=== PATIENT | male | born 1950 | race Caucasian/White ===

== ENCOUNTER 2019-06-27 06:43 | Outpatient (CLI) | payer MEDICARE, OTHER ==
[2019-06-28 11:06] LABS: SARS-CoV-2 MS2 Positive; SARS-CoV-2 N Gene Negative; SARS-CoV-2 S Gene Negative; SARS-CoV-2 orf1ab Negative
== END 2019-06-27 06:44 | disposition home or self-care (01) ==
LOC: LABBT 06:43
PROVIDERS: ATTEND Ophthalmology Retina Specialist
DX: Z01.812 Encounter for preprocedural laboratory examination (principal); Z11.59 Encounter for screening for other viral diseases
CPT/HCPCS: 87635; U0003

== ENCOUNTER 2019-07-02 05:45 | Day surgery (SDC) | payer MEDICARE ==
[2019-06-27 14:36] VITALS: BMI 27.1
[2019-07-02] MEDS ORDERED: Cyclopentolate 1% Opth Drop 2 ML BOT ONE (06:15)
[2019-07-02] MEDS ORDERED: Phenylephrine 2.5% Ophth Soln 5 ML BOT ONE (06:15)
[2019-07-02] MEDS ORDERED: Midazolam HCl 2 mg/2 ml Vial ONE (06:35)
[2019-07-02] MEDS ORDERED: Fentanyl 100 MCG/2 ML VIAL ONE (06:35)
[2019-07-02] MEDS ORDERED: PROPOFOL 20 ML ONE (06:35)
[2019-07-02] MEDS ORDERED: EPINEPHrine 0.3 MG in Ophthalmic Irrigation Solution 500 ML IRR SCH (06:45)
--- NOTE | 2019-07-02 09:51 | OP ---
DATE OF PROCEDURE: 07/02/2019 PREOPERATIVE DIAGNOSIS: Vitreous opacity of the left eye. POSTOPERATIVE DIAGNOSIS: Vitreous opacity of the left eye. PROCEDURES PERFORMED: A 25-gauge pars plana vitrectomy, left eye. ESTIMATED BLOOD LOSS: None. SPECIMENS REMOVED: None. COMPLICATIONS: None. ANESTHESIA: MAC with sub-Tenon's block. DESCRIPTION OF PROCEDURE: The patient was identified in the preoperative holding area, where the correct eye being the left eye was marked for surgery. The patient was taken to the operating room, where MAC anesthesia was induced. The left eye was prepped and draped in the usual sterile ophthalmic fashion for surgery. A wire-clip lid speculum was placed. An inferonasal conjunctival peritomy was fashioned with Teo scissors for administration of a sub-Tenon's block. The block consisted of 1:1 ratio of 4% lidocaine and 0.75% Marcaine. A total of 5 mL was administered. A standard 25-gauge pars plana vitrectomy platform was fashioned with trocars placed approximately at 3.5 mm from the limbus. The infusion was noted to be within the vitreous cavity prior to being turned on to infusion pressure of 30 mmHg. The light pipe and microvitrector were introduced in the eye under visualization of the BIOM viewing system. A significant amount of large vitreous opacities was noted. A careful core and peripheral shave vitrectomy were performed taking great care to remove the vitreous opacities to the fullest extent safely possible. Following completion of vitrectomy, 360 degree scleral depressed exam of the periphery revealed no defects. The cannulas were sequentially removed, and all sclerotomies were noted to be watertight. Subconjunctival Ancef and Kenalog were injected. The wire-clip lid speculum was removed followed by application of TobraDex ophthalmic ointment and a light patch and shield. The patient tolerated the procedure well and was taken to the outpatient recovery area in good condition. Job ID: [id number]
[2019-07-02] MEDS ORDERED: CEFAZOLIN 1 GM VIAL ONE (10:24)
[2019-07-02] MEDS ORDERED: Triamcinolone 40 MG/ML VIAL ONE (10:24)
[2019-07-02] MEDS ORDERED: Tobramycin/Dexamethasone Ophth Oint 3.5 GM TUBE ONE (10:24)
[2019-07-02] MEDS ORDERED: PROPOFOL 200 MG/20 ML VIAL ONE (10:24)
[2019-07-02] MEDS ORDERED: Lidocaine 1% PF 5 ML VIAL ONE (10:24)
== END 2019-07-02 09:03 | disposition home or self-care (01) ==
LOC: SDC 05:45
PROVIDERS: ATTEND Ophthalmology Retina Specialist
PROC: 08T53ZZ Resection of Left Vitreous, Percutaneous Approach (ICD-10-PCS; principal; 2019-07-02)
DX: H43.392 Other vitreous opacities, left eye (principal); Z79.1 Long term (current) use of non-steroidal anti-inflammatories (NSAID); Z79.82 Long term (current) use of aspirin; Z79.899 Other long term (current) drug therapy; Z88.5 Allergy status to narcotic agent
CPT/HCPCS: J0171; J0690; J2001; J2250; J2704; J3010; J3301

== ENCOUNTER 2020-07-09 14:10 | Outpatient (CLI) | payer MEDICARE ==
[2020-07-09 16:08] LABS: #Basophils 0.1 10x3/uL (0.0-0.2); #Eosinphils 0.2 10x3/uL (0.0-0.5); #Monocytes 0.8 10x3/uL (0.0-1.1); #Neutrophils 4.6 10x3/uL (1.5-8.4); %Basophils 0.9 % (0.0-2.0); %Eosinophils 2.3 % (0.0-6.0); %Lymphocytes 29.4 % (18.0-47.0); %Monocytes 9.4 % (0.0-10.0); %Neutrophils 57.6 % (40.0-75.0); Hemoglobin 15.4 g/dL (13.5-17.5); Mean Corpuscular HGB CONC 32.8 g/dL (32.0-36.0); Mean Corpuscular Hemoglobin 29.2 pg (27.0-33.0); Mean Platelet Volume 10.4 fl (7.4-10.4); Platelet Count 287 10x3/uL (150-450); RBC Distribution Width 12.9 % (11.5-14.5); Red Blood Cell (RBC) Count 5.28 10x6/uL (4.32-5.72)
[2020-07-09 16:20] LABS: INR-International Normal Ratio 0.9; Prothrombin Time 10.3 sec (9.5-12.1)
[2020-07-09 16:26] LABS: Anion Gap 13 mmol/L (10-20); BUN (Urea Nitrogen) 19 mg/dL (8.4-25.7); Calc. Creatinine Clearance 0 mL/min (70-130); Calcium 9.2 mg/dL (7.8-10.44); Carbon Dioxide 24 mmol/L (23-31); Chloride 107 mmol/L (98-107); Glucose 106 mg/dL (80-115); Potassium 4.6 mmol/L (3.5-5.1); Sodium 139 mmol/L (136-145)
[2020-07-10 13:03] LABS: SARS-CoV-2 PCR by NAA Not Detected (NotDetected)
== END 2020-07-09 14:11 | disposition home or self-care (01) ==
LOC: LABBT 14:10
PROVIDERS: ATTEND Orthopaedic Surgery
DX: Z01.818 Encounter for other preprocedural examination (principal); Z20.822 Contact with and (suspected) exposure to COVID-19; M17.12 Unilateral primary osteoarthritis, left knee
CPT/HCPCS: 80048; 85025; 85610; 87081; 93005; U0003; U0005; 93010

== ENCOUNTER 2020-07-14 08:27 | Inpatient (IN) | payer MEDICARE ==
[2020-07-10 15:12] VITALS: BMI 28.5
[2020-07-14] MEDS ORDERED: Fentanyl 100 MCG/2 ML VIAL ONE ×2 (10:10→11:48)
[2020-07-14] MEDS ORDERED: Midazolam HCl 2 mg/2 ml Vial ONE (10:10)
[2020-07-14] MEDS ORDERED: Sodium Chloride 0.9% 100 ML ONE (10:53)
[2020-07-14] MEDS ORDERED: Tranexamic Acid 1,000 MG/10 ML VIAL ONE (10:53)
[2020-07-14] MEDS ORDERED: Vancomycin 1.5 GRAM/300 ML BAG 1.5 GM in Premix Bag 1 BAG IVPB SCH ×2 (11:00→23:59)
[2020-07-14] MEDS ORDERED: Fentanyl 100 MCG/2 ML VIAL SLOW IVP PRN ×3 (11:43→14:01)
[2020-07-14] MEDS ORDERED: HYDROcodone/Acetaminophen 10/325 mg Tablet PO PRN ×3 (11:45→14:01)
[2020-07-14] MEDS ORDERED: Zolpidem Tartrate 5 MG TAB PO PRN ×2 (11:45→14:01)
[2020-07-14] MEDS ORDERED: traMADol HCl 50 MG TAB PO PRN ×3 (11:45→14:01)
[2020-07-14] MEDS ORDERED: Ondansetron PF 4 MG/2 ML Vial IVP PRN ×2 (11:45→14:01)
[2020-07-14] MEDS ORDERED: Promethazine HCl 25 MG/ML VIAL IM PRN ×3 (11:45→14:06)
[2020-07-14] MEDS ORDERED: Ropivacaine 0.2% 550 ML 550 ML NERVE BLCK SCH (11:45)
[2020-07-14] MEDS ORDERED: PROPOFOL 200 MG/20 ML VIAL ONE (11:52)
[2020-07-14] MEDS ORDERED: Ondansetron PF 4 MG/2 ML Vial ONE (11:52)
[2020-07-14] MEDS ORDERED: Dexamethasone 20 MG/5 ML VIAL ONE (11:52)
[2020-07-14] MEDS ORDERED: Bupivacaine HCl 0.5%/Epinephrine 1:200,000/PF 30 ml Vial ONE (11:52)
[2020-07-14] MEDS ORDERED: Lidocaine 1% PF 5 ML VIAL ONE (11:52)
[2020-07-14] MEDS ORDERED: Ropivacaine 2% HCl/PF (20 MG/10 ML VIAL) ONE (11:52)
[2020-07-14] MEDS ORDERED: Bupivacaine 0.25% HCL 30 ML VIAL ONE ×2 (12:38→15:31)
[2020-07-14] MEDS ORDERED: Acetaminophen 325 MG TAB PO PRN (14:01)
[2020-07-14] MEDS ORDERED: diphenhydrAMINE 25 MG CAP PO PRN (14:01)
[2020-07-14] MEDS ORDERED: Promethazine HCl 25 MG/ML VIAL SLOW IVP PRN (14:06)
[2020-07-14] MEDS ORDERED: Ondansetron HCl/PF 4 MG/2 ML Vial IVP PRN (14:06)
[2020-07-14] MEDS: Ketorolac Tromethamine 30 MG/ML VIAL IVP SCH ×3 (16:42→23:15)
[2020-07-14] MEDS: Sodium Chloride 0.9% 1,000 ML IV SCH (18:01)
[2020-07-14] MEDS: Aspirin 81 mg Enteric Coated Tablet PO SCH (20:08)
[2020-07-14] MEDS: CEFAZOLIN 2 GM in Premix Bag 1 BAG IVPB SCH (20:08)
[2020-07-15] MEDS: Sodium Chloride 0.9% 1,000 ML IV SCH ×3 (03:16→22:17)
[2020-07-15] MEDS: Ketorolac Tromethamine 30 MG/ML VIAL IVP SCH ×3 (05:07→17:03)
[2020-07-15] MEDS: CEFAZOLIN 2 GM in Premix Bag 1 BAG IVPB SCH (05:07)
[2020-07-15 05:43] LABS: Mean Corpuscular Volume 91.2 fL (78.0-98.0); Mean Platelet Volume 7.9 fL (7.4-10.4); Platelet Count 246 thou/uL (130-400); RBC Distribution Width 12.2 % (11.5-14.5); Red Blood Cell (RBC) Count 4.18 mill/uL (4.70-6.10); White Blood Cell (WBC) Count 15.6 thou/uL (4.8-10.8)
[2020-07-15] MEDS: Ferrous Gluconate 324 MG TAB PO SCH ×2 (08:49→20:19)
[2020-07-15] MEDS: Aspirin 81 mg Enteric Coated Tablet PO SCH ×2 (08:49→20:19)
[2020-07-15] MEDS: Senokot S 8.6-50 MG TAB PO SCH ×2 (08:49→20:19)
[2020-07-15] MEDS: Multivitamin W/ Minerals 1 TAB PO SCH (08:49)
[2020-07-15] MEDS: HYDROcodone/Acetaminophen 10/325 mg Tablet PO PRN ×2 (11:35→20:26)
[2020-07-16] MEDS: Ketorolac Tromethamine 30 MG/ML VIAL IVP SCH ×2 (05:59)
[2020-07-16 06:01] LABS: Hemoglobin 12.5 g/dL (14.0-18.0); Mean Corpuscular HGB CONC 33.8 g/dL (32.0-36.0); Mean Corpuscular Hemoglobin 31.1 pg (27.0-31.0); Mean Corpuscular Volume 91.9 fL (78.0-98.0); Mean Platelet Volume 7.7 fL (7.4-10.4); Platelet Count 215 thou/uL (130-400); RBC Distribution Width 12.2 % (11.5-14.5); Red Blood Cell (RBC) Count 4.01 mill/uL (4.70-6.10); White Blood Cell (WBC) Count 12.5 thou/uL (4.8-10.8)
[2020-07-16] MEDS: Ferrous Gluconate 324 MG TAB PO SCH (09:14)
[2020-07-16] MEDS: Aspirin 81 mg Enteric Coated Tablet PO SCH (09:14)
[2020-07-16] MEDS: Multivitamin W/ Minerals 1 TAB PO SCH (09:14)
[2020-07-16] MEDS: Senokot S 8.6-50 MG TAB PO SCH (09:14)
[2020-07-16] MEDS: HYDROcodone/Acetaminophen 10/325 mg Tablet PO PRN ×2 (09:18→13:20)
[2020-07-16 12:02] VITALS: BP 122/73; TEMP 98.2
[2020-07-16] MEDS ORDERED: Ketorolac Tromethamine 30 MG/ML VIAL IVP PRN (16:00)
== END 2020-07-16 15:50 | disposition home or self-care (01) | DRG 470 ==
LOC: SDC 08:27 → SJJU 14:01
PROVIDERS: ADMIT Orthopaedic Surgery; ATTEND Orthopaedic Surgery
PROC: 0SRD0J9 Replacement of Left Knee Joint with Synthetic Substitute, Cemented, Open Approach (ICD-10-PCS; principal; 2020-07-14)
DX: M17.0 Bilateral primary osteoarthritis of knee (principal); M21.162 Varus deformity, not elsewhere classified, left knee; M25.762 Osteophyte, left knee; H40.9 Unspecified glaucoma; Z88.5 Allergy status to narcotic agent; Z98.890 Other specified postprocedural states; Z85.820 Personal history of malignant melanoma of skin
CPT/HCPCS: 36415; 85027; A4306; C1713; C1776; J0690; J1100; J1885; J2250; J2405; J2704; J2795; J3010; J3370; J3490; S0020

== ENCOUNTER 2020-07-18 21:24 | Emergency (ER) | payer MEDICARE ==
[2020-07-18] MEDS ORDERED: Gabapentin 300 MG CAP PO SCH (22:15)
[2020-07-18 22:31] LABS: #Basophils 0.1 thou/uL (0.0-0.2); #Eosinphils 0.3 thou/uL (0.0-0.7); #Lymphocytes 1.8 thou/uL (1.20-3.40); #Monocytes 1.3 thou/uL (0.11-0.59); #Neutrophils 6.9 thou/uL (1.40-6.50); %Basophils 0.9 % (0.0-1.0); %Eosinophils 3.3 % (0.0-10.0); %Lymphocytes 17.1 % (21.0-51.0); %Monocytes 12.1 % (0.0-10.0); %Neutrophils 66.5 % (42.0-75.0); Hemoglobin 11.5 g/dL (14.0-18.0); Mean Corpuscular HGB CONC 34.1 g/dL (32.0-36.0); Mean Corpuscular Hemoglobin 30.7 pg (27.0-31.0); Mean Corpuscular Volume 90.2 fL (78.0-98.0); Mean Platelet Volume 7.4 fL (7.4-10.4); Platelet Count 288 thou/uL (130-400); Red Blood Cell (RBC) Count 3.74 mill/uL (4.70-6.10); White Blood Cell (WBC) Count 10.4 thou/uL (4.8-10.8)
[2020-07-18 22:53] LABS: ALT (SGPT) 34 U/L (8-55); AST (SGOT) 30 U/L (5-34); Albumin 3.6 g/dL (3.4-4.8); Alkaline Phosphatase 104 U/L (40-110); Anion Gap 14 mmol/L (10-20); BUN (Urea Nitrogen) 21 mg/dL (8.4-25.7); Bilirubin, Total 1.6 mg/dL (0.2-1.2); Calc. Creatinine Clearance 0 mL/min (70-130); Calcium 8.6 mg/dL (7.8-10.44); Carbon Dioxide 22 mmol/L (23-31); Chloride 104 mmol/L (98-107); Globulin 2.9 g/dL (2.4-3.5); Glucose 111 mg/dL (80-115); Potassium 3.9 mmol/L (3.5-5.1); Protein, Total 6.5 g/dL (5.8-8.1); Sodium 136 mmol/L (136-145)
[2020-07-18] MEDS ORDERED: Metoclopramide HCl 10 MG TAB ONE (23:16)
== END 2020-07-18 23:31 | disposition home or self-care (01) ==
LOC: ERS 21:24
DX: R06.6 Hiccough (principal)
CPT/HCPCS: 36415; 71045; 80053; 84484; 85025; 93005

== ENCOUNTER 2020-07-20 13:40 | Outpatient (CLI) | payer MEDICARE ==
[2020-07-20] MEDS ORDERED: Iopamidol 370 76% 100 ML VIAL ONE (13:51)
== END 2020-07-20 13:41 | disposition home or self-care (01) ==
LOC: CT 13:40
PROVIDERS: ATTEND Orthopaedic Surgery
DX: R06.02 Shortness of breath (principal); K44.9 Diaphragmatic hernia without obstruction or gangrene; K21.9 Gastro-esophageal reflux disease without esophagitis
CPT/HCPCS: 71275; 82565; Q9967

== ENCOUNTER 2021-07-15 08:33 | Outpatient (CLI) | payer MEDICARE ==
[2021-07-15 09:53] LABS: #Basophils 0.1 10x3/uL (0.0-0.2); #Eosinphils 0.2 10x3/uL (0.0-0.5); #Monocytes 0.7 10x3/uL (0.0-1.1); #Neutrophils 3.9 10x3/uL (1.5-8.4); %Basophils 0.8 % (0.0-2.0); %Eosinophils 2.3 % (0.0-6.0); %Monocytes 10.7 % (0.0-10.0); %Neutrophils 59.9 % (40.0-75.0); Hemoglobin 15.5 g/dL (13.5-17.5); Mean Corpuscular HGB CONC 33.3 g/dL (32.0-36.0); Mean Corpuscular Hemoglobin 29.6 pg (27.0-33.0); Mean Corpuscular Volume 88.9 fl (81.2-95.1); Mean Platelet Volume 9.7 fl (7.4-10.4); Platelet Count 325 10x3/uL (150-450); Red Blood Cell (RBC) Count 5.23 10x6/uL (4.32-5.72); White Blood Cell (WBC) Count 6.5 10x3/uL (3.5-10.5)
[2021-07-15 10:01] LABS: INR-International Normal Ratio 0.9
[2021-07-15 10:08] LABS: Anion Gap 14 mmol/L (10-20); BUN (Urea Nitrogen) 21 mg/dL (8.4-25.7); Calc. Creatinine Clearance 0 mL/min (70-130); Calcium 9.2 mg/dL (7.8-10.44); Carbon Dioxide 21 mmol/L (23-31); Chloride 109 mmol/L (98-107); Glucose 92 mg/dL (83-110); Potassium 4.2 mmol/L (3.5-5.1); Sodium 140 mmol/L (136-145)
== END 2021-07-15 08:34 | disposition home or self-care (01) ==
LOC: LABBT 08:33
PROVIDERS: ATTEND Orthopaedic Surgery
DX: Z01.818 Encounter for other preprocedural examination (principal); M17.11 Unilateral primary osteoarthritis, right knee; Z20.822 Contact with and (suspected) exposure to COVID-19
CPT/HCPCS: 80048; 85025; 85610; 87081; 93005; U0003; U0005; 93010

== ENCOUNTER 2021-07-20 06:36 | Observation (INO) | payer MEDICARE ==
[2021-07-19 10:02] VITALS: BMI 28.5
[2021-07-20] MEDS ORDERED: Tranexamic Acid 1,000 MG/10 ML VIAL ONE (07:12)
[2021-07-20] MEDS ORDERED: Sodium Chloride 0.9% 100 ML ONE (07:12)
[2021-07-20] MEDS ORDERED: Vancomycin 1.5 GRAM/300 ML BAG 1.5 GM in Premix Bag 1 BAG IVPB SCH ×2 (07:30→20:00)
[2021-07-20] MEDS ORDERED: Lidocaine 1% (PF) 30 ML VIAL ONE (08:11)
[2021-07-20] MEDS ORDERED: Midazolam HCl 2 mg/2 ml Vial ONE (08:11)
[2021-07-20] MEDS ORDERED: Fentanyl 100 MCG/2 ML VIAL ONE ×4 (08:11→14:10)
[2021-07-20] MEDS ORDERED: Fentanyl 100 MCG/2 ML VIAL IV PRN (09:11)
[2021-07-20] MEDS ORDERED: traMADol HCl 50 MG TAB PO PRN ×2 (09:15)
[2021-07-20] MEDS ORDERED: Zolpidem Tartrate 5 MG TAB PO PRN (09:15)
[2021-07-20] MEDS ORDERED: Ropivacaine HCl/PF 250 ML in Premix Bag 1 BAG NERVE BLCK SCH (09:15)
[2021-07-20] MEDS ORDERED: Ondansetron PF 4 MG/2 ML Vial IVP PRN (09:15)
[2021-07-20] MEDS ORDERED: Promethazine HCl 25 MG/ML VIAL IM PRN (09:15)
[2021-07-20] MEDS ORDERED: Bupivacaine HCl 0.5%/Epinephrine 1:200,000/PF 30 ml Vial ONE (09:51)
[2021-07-20] MEDS ORDERED: Lidocaine 1% PF 5 ML VIAL ONE (09:51)
[2021-07-20] MEDS ORDERED: Dexamethasone 20 MG/5 ML VIAL ONE (09:51)
[2021-07-20] MEDS ORDERED: PROPOFOL 200 MG/20 ML VIAL ONE (09:51)
[2021-07-20] MEDS ORDERED: Ondansetron PF 4 MG/2 ML Vial ONE (09:51)
[2021-07-20] MEDS ORDERED: Bupivacaine 0.25% HCL 30 ML VIAL ONE (09:54)
[2021-07-20] MEDS ORDERED: EPINEPHrine 1 MG/ML AMP ONE (09:54)
[2021-07-20] MEDS ORDERED: fentaNYL Citrate/PF 100 MCG/2 ML SYRINGE ONE ×2 (09:57→10:41)
[2021-07-20] MEDS ORDERED: Acetaminophen 325 MG TAB PO PRN (11:43)
[2021-07-20] MEDS ORDERED: diphenhydrAMINE 25 MG CAP PO PRN (11:43)
[2021-07-20] MEDS ORDERED: Ketorolac Tromethamine 30 MG/ML VIAL IVP SCH (12:00)
[2021-07-20] MEDS: Sodium Chloride 0.9% 1,000 ML IV SCH ×2 (14:58→20:32)
[2021-07-20] MEDS: HYDROcodone/Acetaminophen 10/325 mg Tablet PO PRN ×2 (15:22→20:31)
[2021-07-20] MEDS: CEFAZOLIN 2 GM in Sodium Chloride 0.9% 100 ML IVPB SCH (17:00)
[2021-07-20] MEDS: Ketorolac Tromethamine 30 MG/ML VIAL IVP SCH (17:01)
[2021-07-20] MEDS: Aspirin 81 mg Enteric Coated Tablet PO SCH (20:32)
[2021-07-21] MEDS: HYDROcodone/Acetaminophen 10/325 mg Tablet PO PRN ×4 (00:11→20:08)
[2021-07-21] MEDS: Ketorolac Tromethamine 30 MG/ML VIAL IVP SCH ×5 (00:12→23:30)
[2021-07-21] MEDS: CEFAZOLIN 2 GM in Sodium Chloride 0.9% 100 ML IVPB SCH (02:06)
[2021-07-21] MEDS: Sodium Chloride 0.9% 1,000 ML IV SCH ×2 (05:08→16:57)
[2021-07-21 06:21] LABS: Hemoglobin 12.8 g/dL (14.0-18.0); Mean Corpuscular HGB CONC 32.4 g/dL (32.0-36.0); Mean Corpuscular Hemoglobin 30.5 pg (27.0-31.0); Mean Corpuscular Volume 94.2 fL (78.0-98.0); Platelet Count 245 thou/uL (130-400); RBC Distribution Width 12.4 % (11.5-14.5); Red Blood Cell (RBC) Count 4.18 mill/uL (4.70-6.10); White Blood Cell (WBC) Count 11.7 thou/uL (4.8-10.8)
[2021-07-21] MEDS ORDERED: chlorproMAZINE HCl 25 MG TAB PO PRN (09:45)
[2021-07-21] MEDS: Aspirin 81 mg Enteric Coated Tablet PO SCH ×2 (09:59→20:07)
[2021-07-21] MEDS: Multivitamin W/ Minerals 1 TAB PO SCH (09:59)
[2021-07-21] MEDS: Floranex 1 GM Packet PO SCH (09:59)
[2021-07-21] MEDS: Ferrous Gluconate 324 MG TAB PO SCH ×2 (09:59→20:07)
[2021-07-21] MEDS: Senokot S 8.6-50 MG TAB PO SCH ×2 (09:59→20:07)
[2021-07-21] MEDS: Metoclopramide HCl 10 MG TAB PO PRN (16:08)
[2021-07-22] MEDS: Metoclopramide HCl 10 MG TAB PO PRN ×2 (00:47→14:51)
[2021-07-22] MEDS: HYDROcodone/Acetaminophen 10/325 mg Tablet PO PRN ×3 (00:47→09:27)
[2021-07-22] MEDS: Calcium Carbonate 500 MG ChewTAB PO PRN ×2 (00:49→05:17)
[2021-07-22] MEDS: Sodium Chloride 0.9% 1,000 ML IV SCH ×2 (03:02→12:58)
[2021-07-22] MEDS: Ketorolac Tromethamine 30 MG/ML VIAL IVP SCH ×2 (05:18→11:44)
[2021-07-22 05:44] LABS: Hemoglobin 11.8 g/dL (14.0-18.0); Mean Corpuscular HGB CONC 33.4 g/dL (32.0-36.0); Mean Platelet Volume 7.3 fL (7.4-10.4); Platelet Count 232 thou/uL (130-400); Red Blood Cell (RBC) Count 3.81 mill/uL (4.70-6.10); White Blood Cell (WBC) Count 9.2 thou/uL (4.8-10.8)
[2021-07-22] MEDS: Floranex 1 GM Packet PO SCH (09:11)
[2021-07-22] MEDS: Multivitamin W/ Minerals 1 TAB PO SCH (09:12)
[2021-07-22] MEDS: Senokot S 8.6-50 MG TAB PO SCH (09:12)
[2021-07-22] MEDS: Aspirin 81 mg Enteric Coated Tablet PO SCH (09:12)
[2021-07-22] MEDS: Ferrous Gluconate 324 MG TAB PO SCH (09:12)
[2021-07-22 15:24] VITALS: BP 135/74; TEMP 98.4
== END 2021-07-22 13:25 | disposition home or self-care (01) ==
LOC: SDC 06:36 → SURG A 14:55
PROVIDERS: ADMIT Orthopaedic Surgery; ATTEND Orthopaedic Surgery
PROC: 0SRC0J9 Replacement of Right Knee Joint with Synthetic Substitute, Cemented, Open Approach (ICD-10-PCS; principal; 2021-07-20)
PROC: 8E0YXBZ Computer Assisted Procedure of Lower Extremity (ICD-10-PCS; 2021-07-20)
PROC: 3E0T3BZ Introduction of Anesthetic Agent into Peripheral Nerves and Plexi, Percutaneous Approach (ICD-10-PCS; 2021-07-20)
DX: M17.11 Unilateral primary osteoarthritis, right knee (principal); M21.161 Varus deformity, not elsewhere classified, right knee; R06.6 Hiccough; K21.9 Gastro-esophageal reflux disease without esophagitis; Z79.899 Other long term (current) drug therapy; Z88.5 Allergy status to narcotic agent; Z96.652 Presence of left artificial knee joint
CPT/HCPCS: 20985; 27447; 64448; 73560; 85027 ×2; 97110 ×3; 97116 ×3; 97139; 97530; C1713; C1776; J3370; 36415; 96374; 96375; 96376; G0378; J0171; J0690; J1100; J1885; J2001; J2250; J2405; J2704; J2795; J3010; J3490; Q0161; S0020

== ENCOUNTER 2022-04-24 20:52 | Emergency (ER) | payer MEDICARE ==
[2022-04-24] MEDS ORDERED: Meclizine HCl 25 MG TAB ONE (21:32)
[2022-04-24] MEDS ORDERED: LORazepam 2 MG/ML SYR.(CARPUJECT) ONE (21:32)
[2022-04-24 22:08] LABS: #Basophils 0.1 thou/uL (0.0-0.2); #Eosinphils 0.1 thou/uL (0.0-0.7); #Lymphocytes 1.7 thou/uL (1.20-3.40); #Monocytes 0.6 thou/uL (0.11-0.59); #Neutrophils 7.2 thou/uL (1.40-6.50); %Basophils 0.6 % (0.0-1.0); %Lymphocytes 17.7 % (21.0-51.0); %Monocytes 6.4 % (0.0-10.0); %Neutrophils 74.2 % (42.0-75.0); Hemoglobin 14.9 g/dL (14.0-18.0); Mean Corpuscular HGB CONC 33.4 g/dL (32.0-36.0); Mean Corpuscular Hemoglobin 30.5 pg (27.0-31.0); Mean Corpuscular Volume 91.4 fl (78.0-98.0); Mean Platelet Volume 7.5 fL (7.4-10.4); Platelet Count 336 10x3/uL (130-400); RBC Distribution Width 11.9 % (11.5-14.5); Red Blood Cell (RBC) Count 4.89 mill/uL (4.70-6.10); White Blood Cell (WBC) Count 9.7 10x3/uL (4.8-10.8)
[2022-04-24 22:30] LABS: ALT (SGPT) 16 U/L (8-55); AST (SGOT) 14 U/L (5-34); Albumin 4.1 g/dL (3.4-4.8); Alkaline Phosphatase 99 U/L (40-110); Anion Gap 15 mmol/L (10-20); BUN (Urea Nitrogen) 24 mg/dL (8.4-25.7); Bilirubin, Total 0.4 mg/dL (0.2-1.2); Calc. Creatinine Clearance 0 mL/min (70-130); Calcium 8.8 mg/dL (7.8-10.44); Carbon Dioxide 20 mmol/L (23-31); Chloride 109 mmol/L (98-107); Estimated GFR 91; Glucose 105 mg/dL (83-110); Lipase 30 U/L (8-78); Potassium 3.4 mmol/L (3.5-5.1); Protein, Total 7.1 g/dL (5.8-8.1); Sodium 141 mmol/L (136-145)
[2022-04-24] MEDS ORDERED: Ondansetron ODT 4 MG TAB ONE (22:50)
== END 2022-04-24 22:56 | disposition home or self-care (01) ==
LOC: ERS 20:52
DX: N40.0 Benign prostatic hyperplasia without lower urinary tract symptoms (principal)
CPT/HCPCS: 70450; 71045; 80053; 83690; 83735; 84484; 85025; 93005; 96374; 99285; J2060; 36415; Q0162

== ENCOUNTER 2023-08-25 07:51 | Outpatient (CLI) | payer MEDICARE ==
[2023-08-25 09:21] LABS: #Basophils 0.07 10x3/uL (0.0-0.2); #Eosinphils 0.24 10x3/uL (0.0-0.5); #Monocytes 0.63 10x3/uL (0.0-1.1); #Neutrophils 4.11 10x3/uL (1.5-8.4); %Eosinophils 3.5 % (0.0-6.0); %Lymphocytes 25.8 % (18.0-47.0); %Monocytes 9.2 % (0.0-10.0); %Neutrophils 60.1 % (40.0-75.0); Hematocrit 45.9 % (38.8-50.0); Hemoglobin 15.8 g/dL (13.5-17.5); Mean Corpuscular HGB CONC 34.4 g/dL (32.0-36.0); Mean Corpuscular Hemoglobin 30.2 pg (27.0-33.0); Mean Corpuscular Volume 87.8 fL (81.2-95.1); Mean Platelet Volume 10.1 fL (7.4-10.4); Platelet Count 298 10x3/uL (150-450); RBC Distribution Width 12.7 % (11.5-14.5); Red Blood Cell (RBC) Count 5.23 10x6/uL (4.32-5.72); White Blood Cell (WBC) Count 6.9 10x3/uL (3.5-10.5)
== END 2023-08-25 07:52 | disposition home or self-care (01) ==
LOC: LABBT 07:51
PROVIDERS: ATTEND Orthopaedic Surgery Hand Surgery
DX: Z01.818 Encounter for other preprocedural examination (principal); G56.03 Carpal tunnel syndrome, bilateral upper limbs
CPT/HCPCS: 85025; 93005; 93010

== ENCOUNTER 2023-08-29 05:32 | Day surgery (SDC) | payer MEDICARE ==
[2023-08-25 13:33] VITALS: BMI 29.9
[2023-08-29] MEDS ORDERED: Bupivacaine PF 0.5% 30 ML VIAL ONE (06:23)
[2023-08-29] MEDS ORDERED: Bacitracin Zinc Ointment 30 gm TUBE ONE (06:23)
[2023-08-29] MEDS ORDERED: Lidocaine 1% MPF 2 ML VIAL ONE (06:45)
[2023-08-29] MEDS ORDERED: CEFAZOLIN 2 GM VIAL ONE (06:46)
[2023-08-29] MEDS ORDERED: Sodium Chloride 0.9% 100 ML ONE (06:46)
[2023-08-29] MEDS ORDERED: Lidocaine 1% PF 5 ML VIAL ONE (07:11)
[2023-08-29] MEDS ORDERED: PROPOFOL 20 ML ONE (07:11)
[2023-08-29] MEDS ORDERED: fentaNYL 50 mcg/mL 1 mL Vial ONE (07:11)
[2023-08-29] MEDS ORDERED: Ondansetron PF 4 MG/2 ML Vial ONE (07:11)
== END 2023-08-29 10:13 | disposition home or self-care (01) ==
LOC: SDC 05:32
PROVIDERS: ATTEND Orthopaedic Surgery Hand Surgery
PROC: 01N50ZZ Release Median Nerve, Open Approach (ICD-10-PCS; principal; 2023-08-29)
DX: G56.01 Carpal tunnel syndrome, right upper limb (principal); Z79.899 Other long term (current) drug therapy; Z98.890 Other specified postprocedural states; Z88.8 Allergy status to other drugs, medicaments and biological substances; Z88.5 Allergy status to narcotic agent; Z88.2 Allergy status to sulfonamides; Z96.651 Presence of right artificial knee joint
CPT/HCPCS: 64721; A6223; J0665; J2405; J2704; J3010

== ENCOUNTER 2024-12-15 20:03 | Observation (INO) | payer MEDICARE ==
[~2024-12-15 20:03] MED LIST: Iopamidol-370 76% 500 ML MDV (1 ML CHARGE) ONE
[2024-12-15 21:03] LABS: #Basophils 0.09 10x3/uL (0.0-0.2); #Eosinophils 0.11 10x3/uL (0.0-0.7); #Monocytes 0.76 10x3/uL (0.11-0.59); #Neutrophils 10.93 10x3/uL (1.40-6.50); %Basophils 0.7 % (0.0-1.0); %Eosinophils 0.8 % (0.0-10.0); %Lymphocytes 11.8 % (21.0-51.0); %Monocytes 5.6 % (0.0-10.0); %Neutrophils 80.8 % (42.0-75.0); Hematocrit 49.9 % (42.0-52.0); Hemoglobin 16.3 g/dL (14.0-18.0); Mean Corpuscular Hemoglobin 28.9 pg (27.0-31.0); Mean Corpuscular Volume 88.5 fL (78.0-98.0); Platelet Count 319 10x3/uL (130-400); Red Blood Cell (RBC) Count 5.64 mill/uL (4.70-6.10); White Blood Cell (WBC) Count 13.52 10x3/uL (4.8-10.8)
[2024-12-15 21:24] LABS: ALT (SGPT) 20 U/L (Less than 45); AST (SGOT) 19 U/L (11-34); Albumin 4.2 g/dL (3.1-4.5); Alkaline Phosphatase 107 U/L (40-110); Anion Gap 13 mmol/L (10-20); BUN (Urea Nitrogen) 23 mg/dL (8.4-25.7); Bilirubin, Total 0.9 mg/dL (0.3-1.2); Calc. Creatinine Clearance 0 mL/min (70-130); Calcium 9.4 mg/dL (7.8-10.44); Carbon Dioxide 21 mmol/L (23-31); Chloride 109 mmol/L (98-107); Globulin 3.3 g/dL (2.4-3.5); Glucose 121 mg/dL (83-110); Lipase 18 U/L (8-78); Potassium 4.1 mmol/L (3.5-5.1); Sodium 139 mmol/L (136-145)
[2024-12-16 00:06] LABS: Bacteria/HPF None Seen HPF (None Seen); CAUTI Indications for Culture Pelvic or flank pain; Glucose, Urine (Dipstick) Normal (Negative); Leukocyte Negative Leu/uL (Negative); Protein, Urine (Dipstick) 30 mg/dL (Neg-Trace); RBC/HPF 0-3 HPF (0-3); Specific Gravity, Urine 1.034 (1.002-1.036); WBC/HPF 0-3 HPF (0-3)
[2024-12-16 00:12] LABS: Urine Culture Reflex No No
[2024-12-16] MEDS ORDERED: Acetaminophen 325 MG TAB PO PRN (03:42)
[2024-12-16] MEDS ORDERED: oxyCODONE 5 MG TAB PO PRN (03:42)
[2024-12-16] MEDS ORDERED: Ondansetron PF 4 MG/2 ML Vial IVP PRN (03:42)
[2024-12-16 04:44] VITALS: BMI 29.5
[2024-12-16 06:28] LABS: Magnesium 2.1 mg/dL (1.6-2.6)
[2024-12-16] MEDS ORDERED: MD-Gastroview 120 ML BOT ONE (07:32)
[2024-12-16] MEDS: Famotidine/PF 20 mg/2ml Vial SLOW IVP SCH (09:31)
[2024-12-16] MEDS: Enoxaparin 40 MG (0.4 mL) SYRINGE SC SCH (09:32)
[2024-12-16] MEDS: Ketorolac Tromethamine 30 MG (1 mL) VIAL IVP SCH (11:21)
[2024-12-16 11:48] VITALS: TEMP 97.6
[2024-12-16 15:59] VITALS: BP 142/88
[2024-12-19] MEDS ORDERED: FLU (Fluad Triv) 25-26 (65UP)PF 45 MCG/0.5 ML Syringe IM ONE (09:00)
== END 2024-12-16 16:39 | disposition home or self-care (01) ==
LOC: ERS 20:03 → T4-A 12-16 03:36
PROVIDERS: ADMIT Surgery; ATTEND Surgery
DX: R10.9 Unspecified abdominal pain (principal); K31.89 Other diseases of stomach and duodenum; Z88.5 Allergy status to narcotic agent
CPT/HCPCS: 74177; 74250; 80053; 81001; 83690; 83735; 84100; 85025; 93005; 96374; 99285; G0378 ×2; J1308; J7120; Q9963; Q9967; 36415